=== PATIENT | male | born 1980 | race Caucasian/White ===

== ENCOUNTER → 2020-09-27 06:59 | Outpatient (CLI) | payer BC, SELFPAY ==
--- NOTE | ~2020-09-27 | XR_ITS ---
EXAMINATION: XR cervical spine 4-5V EXAM DATE: 09/27/2020 09:12 INDICATION: Radiculopathy, cervical region. TECHNIQUE: Cervical spine frontal, lateral, lateral swimmers, and open-mouth odontoid projections. C omparison is made to prior examination from 08/11/2017. FINDINGS: There is no evidence of acute cervical fracture. The odontoid process is intact. Pre-dens space is normal. Prevertebral soft tissue is normal. There are no soft tissue abnormalities identi fied. There is mild disc disease at C5-6 and C6-7. There is mild cervical arthropathy. The vertebr al bodies are aligned. IMPRESSION: Mild cervical spondylosis. Reviewed, dictated and finalized at location A. IMPRESSION: Mild cervical spondylosis.
--- NOTE | ~2020-09-27 | XR_ITS ---
EXAMINATION: XR lumbar spine 2-3V DATE: 09/27/2020 09:12 INDICATION: Lumbar radiculopathy TECHNIQUE: Anteroposterior and lateral views of the lumbar spine, and cone-down lateral view of the l umbosacral junction were obtained. COMPARISON: MRI 10/21/2018 FINDINGS: There are 3 mm of unchanged retrolisthesis of L5 on S1. Mild loss of intervertebral disc sp enrique height in the lower thoracic spine and at L1-2 and L2-3 is unchanged. There is no fracture. The v ertebral body heights are normal. Small degenerative osteophytes project from the anterior endplates of multiple vertebral bodies. There is moderate facet osteoarthritis of the lower lumbar spine. IMPRESSION: 1. Moderate lumbar spondylosis without acute findings or significant interval change. Reviewed, dictated and finalized at location A. IMPRESSION: 1. Moderate lumbar spondylosis without acute findings or significant interval martin hong
== END ==
PROVIDERS: Visit Provider Family Medicine
DX: M47.22 Other spondylosis with radiculopathy, cervical region (principal); M47.27 Other spondylosis with radiculopathy, lumbosacral region
CPT/HCPCS: 72050; 72100

== ENCOUNTER → 2021-12-04 07:17 | Outpatient (CLI) | payer OTHER, SELFPAY ==
--- NOTE | ~2021-12-04 | XR_ITS ---
XR lumbar spine 2-3V DATE: 12/04/2021 08:06 INDICATION: Back pain. Radiculopathy. TECHNIQUE: AP, lateral, coned lateral lumbosacral views COMPARISON: 09/27/2020 lumbar spine FINDINGS: There are prominent bridging osteophytes of the lower thoracic spine including T12-L1 consi stent with diffuse idiopathic skeletal hyperostosis. There is moderate degenerative disc disease at L1-2, L2-3, L3-4. L4-5 and L5-S1 interspaces are relat ively well preserved. No fracture or bone destruction of the lumbar spine is evident. Included lower thoracic pedicles and lumbar pedicles are intact. No lumbar spine fracture or bone destruction is detected. Stable minimal retrolisthesis at L5-S1; otherwise no spondylolisthesis.. The included portions of the sacroiliac joints are unremarkable. IMPRESSION: Previously noted skeletal hyperostosis of the thoracolumbar spine Moderate degenerative disc disease of the upper and mid lumbar spine Reviewed, dictated and finalized at location A.
--- NOTE | ~2021-12-04 | XR_ITS ---
XR cervical spine 4-5V DATE: 12/04/2021 08:06 INDICATION: Radiculopathy TECHNIQUE: Standing AP, lateral, swimmer's, open-mouth fetus COMPARISON: 09/27/2020 cervical spine FINDINGS: There is straightening and mild levoscoliosis of the cervical spine which may be due to mus jong spasm. C1 and C2 are normally aligned and the odontoid process is intact. No fracture or dislocation, locked facet or prevertebral soft tissue swelling is detected. There are bridging anterior osteophytes at C5-C6 and particularly prominently at C6-7. There is mild loss of interspace height at C2-3. Cervical interspaces are relatively well preserved o therwise. IMPRESSION: Straightening and mild levoscoliosis Prominent anterior bridging osteophytes at C5-6 and particularly at C6-7 Mild degenerative disc disease at C2-3 Reviewed, dictated and finalized at location A.
--- NOTE | ~2021-12-04 | XR_ITS ---
XR thoracic spine 2V DATE: 12/04/2021 08:06 INDICATION: Radiculopathy TECHNIQUE: AP, lateral, swimmer views COMPARISON: 10/17/2018 MR thoracic spine FINDINGS: There is approximately 22 degrees dextroscoliosis measured from T2 to T9. There is diffuse idiopathic skeletal hyperostosis of the thoracic spine. No fracture or dislocation or bone destruction is evident. The thoracic pedicles appear intact. No pa raspinal soft tissue thickening. IMPRESSION: Dextroscoliosis Diffuse idiopathic skeletal hyperostosis Reviewed, dictated and finalized at location A.
== END ==
PROVIDERS: PCP Internal Medicine; Visit Provider Pain Medicine Interventional Pain Medicine
DX: M47.26 Other spondylosis with radiculopathy, lumbar region (principal); M79.642 Pain in left hand; G89.4 Chronic pain syndrome; M51.36 Other intervertebral disc degeneration, lumbar region; M50.321 Other cervical disc degeneration at C4-C5 level
CPT/HCPCS: 72050; 72070; 72100

== ENCOUNTER 2024-04-13 06:51 | Outpatient (CLI) | payer BC, SELFPAY ==
--- NOTE | ~2024-04-13 | XR_ITS ---
EXAMINATION: XR thoracic spine 3V DATE: 04/13/2024 07:32 INDICATION: Thoracic radiculopathy TECHNIQUE: One AP, lateral and lateral swimmer's views of the thoracic spine were obtained. COMPARISON: Radiographs dated 12/04/2021 and MRI dated 10/21/2018 FINDINGS: No significant interval change in a 20 degree dextroscoliosis measured from T2 through T10. Sagittal alignment is normal. No significant change in chronic mild anterior wedging of a few lower thoracic v ertebral bodies There is multilevel minimal to mild disc height loss bridging osteophytes at multiple levels consistent with diffuse idiopathic skeletal hyperostosis (DISH). IMPRESSION: 1. Unchanged 20 degrees thoracic dextro scoliosis with mild spondylosis and diffuse idiopathic skelet al hyperostosis. 2. Chronic mild anterior wedging of a few lower thoracic vertebral bodies. Reviewed, dictated and finalized at location A. IMPRESSION: 1. Unchanged 20 degrees thoracic dextro scoliosis with mild spondylosis and dif fuse idiopathic skeletal hyperostosis. 2. Chronic mild anterior wedging of a few lower thoracic vertebral bodies.
--- NOTE | ~2024-04-13 | XR_ITS ---
EXAMINATION:[id number]_[id number]_CR DATE: 04/13/2024 07:32 INDICATION: Neck pain TECHNIQUE: AP, lateral, lateral swimmers and odontoid views of the cervical spine are provided. COMPARISON: 12/04/2021 FINDINGS: No significant interval change in mild straightening of the normal cervical lordosis and reportedly l evocurvature. Vertebral body heights are normal. Mild atlantoaxial osteoarthritis. Mild disc height l oss at C2-C3. The remaining disc heights are relatively preserved with bridging anterior osteophytes at C5-C6 and more prominently at C6-C7. Prevertebral soft tissues are normal. IMPRESSION: 1. No significant interval change with mild cervical spondylosis Reviewed, dictated and finalized at location A.
--- NOTE | ~2024-04-13 | XR_ITS ---
EXAMINATION: XR lumbar spine 2-3V DATE: 04/13/2024 07:32 INDICATION: Lumbar radiculopathy TECHNIQUE: Anteroposterior and lateral views of the lumbar spine, and cone-down lateral view of the l umbosacral junction were obtained. COMPARISON: 12/04/21 FINDINGS: 6 degree lumbar levocurvature between L2 and L5. Sagittal alignment is normal. Unchanged chronic mild anterior wedging at T10-L1. Mild disc height loss at T10-T11 through L3-L4 on the right side of L4-L 5. There are bridging osteophytes at multiple levels in the lower thoracic and upper lumbar spine con sistent with diffuse idiopathic skeletal hyperostosis (DISH). 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 Multilevel mild to moderate lumbar facet osteoarthritis. IMPRESSION: 1. 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 2. Chronic mild anterior wedging of a few vertebral bodies at the thoracolumbar junction. Reviewed, dictated and finalized at location A. IMPRESSION: 1. Mild lumbar spondylosis with congenitally small central canal at L4 and L5 c ontributing to at least mild central canal stenosis in the lumbar spine. 2. Chronic mild anterior wedging of a few vertebral bodies at the thoracolumbar junction.
== END 2024-04-13 06:52 | disposition home or self-care (01) ==
LOC: MICIMG 06:52
PROVIDERS: PCP Internal Medicine; Visit Provider Pain Medicine Interventional Pain Medicine
DX: M47.26 Other spondylosis with radiculopathy, lumbar region (principal); M79.642 Pain in left hand; G89.4 Chronic pain syndrome; M47.24 Other spondylosis with radiculopathy, thoracic region
CPT/HCPCS: 72040; 72072; 72100